=== PATIENT | male | born 1965 | race Asian ===

== ENCOUNTER 2019-11-13 13:28 | Outpatient (REF) | payer SELFPAY ==
[2019-11-13 15:25] LABS: Chol HDL Ratio 3.69 mg/dL (1.0-5.00); Cholesterol 229 mg/dL (0-200); Glucose 95 mg/dL (65-115); HDL Cholesterol 62 mg/dL (60-100); LDL Cholesterol Calculated 144 mg/dL (50-129); LDL HDL Ratio 2.32 RATIO (0.00-3.22); Triglycerides 115 mg/dL (0-150)
[2019-11-13 15:37] LABS: Estmated Average Glucose 105; Hemoglobin A1C 5.3 % (4.0-6.0)
== END 2019-11-13 13:29 | disposition home or self-care (01) ==
LOC: LAB 13:28
PROVIDERS: Family Provider Family Medicine; PCP Family Medicine
DX: Z01.89 Encounter for other specified special examinations (principal)
CPT/HCPCS: 80061; 82947; 83036

== ENCOUNTER 2019-11-26 08:12 | Emergency (ER) | payer OTHER, SELFPAY ==
[2019-11-26 08:26] VITALS: BP 147/96; PULSE 59; RESP 18; TEMP 36.7; O2SAT 99; BMI 27.0
--- NOTE | 2019-11-26 08:30 | XR_ITS ---
WS: [id number] XR tibia fibula RT 2V [id number] REASON FOR EXAM: Trauma FINDINGS: Multiple views of the tibia-fibula films show evidence of fractures or dislocations. There is no soft tissue density is seen no edema or calcification noted. The ankle and the knees show no gross abnormalities. XR/XR tibia fibula RT 2V [id number] IMPRESSION: Negative tibia-fibula study
--- NOTE | 2019-11-26 10:22 | W.ED.EXTPRO ---
HPI - Extremity Problem General: Chief complaint: Extremity Injury, Lower Stated complaint: RIGHT LEG PAIN Time Seen by Provider: 11/26/19 08:31 Source: patient Mode of arrival: ambulatory Limitations: no limitations History of Present Illness: HPI Narrative: Patient hit his leg against a splitting mall on Monday. Patient has a swelling and bruising to the right lower extremity. Patient had extension of the contusion into his ankle on the medial side. Patient came in because of this spreading of the bruise. Review of Systems General: Reports: 10 or more systems reviewed and unremarkable except in HPI and below Skin/Breast: Reports: changes in skin color PFSH ED PFSH: Social History Smoking and tobacco status: never smoked Physical Exam Const: COMMON NORMALS: no apparent distress and oriented x3 GENERAL APPEARANCE: cooperative HENMT: COMMON NORMALS: normocephalic, external ears normal, EAC's normal, TM's normal bilaterally and external nose normal HEAD & SCALP: normal to inspection and normocephalic FACE & SINUS: normal facial exam NOSE: external nose normal GENERAL EAR: hearing not grossly impaired EXTERNAL EAR: Yes external ears normal EXTERNAL AUDITORY CANAL: EAC's normal TYMPANIC MEMBRANE: TM's normal bilaterally MOUTH: oral and palatal mucosa normal THROAT: posterior oropharynx normal Eye: COMMON NORMALS: PERRL and EOMs intact bilaterally PUPIL: Yes PERRL Neck/C-Spine: COMMON NORMALS: full ROM and no lymphadenopathy Lymph: LYMPHATIC: no lymphedema noted Chest: COMMONS NORMALS: inspection of chest normal and palpation of chest normal Resp: COMMON NORMALS: normal respiratory effort and clear to auscultation bilaterally AUSCULTATION: clear to auscultation bilaterally Cardio: COMMON NORMALS: regular rate and regular rhythm RATE: regular rate RHYTHM: regular rhythm GI: COMMON NORMALS: normal to inspection, nondistended, normoactive bowel sounds and non-tender : COMMON NORMALS: Yes no CVA tenderness BLADDER/KIDNEY EXAM: Yes no CVA tenderness Back/Pelvis: COMMON NORMALS: no CVA tenderness and thoracic and lumbar spine normal to inspection Extremity: GENERAL: Yes edema RIGHT LOWER EXTREMITY: Yes lower leg (A palpable hematoma is noted to the medial aspect of the anterior right lower leg. Ecchymosis spreads to the ankle on the same extremity. Swelling is noted at the ankle.) Neuro: COMMON NORMALS: oriented x3, moves all extremities and no focal motor deficits Psych: COMMON NORMALS: mental status grossly normal and cooperative Skin: COMMON NORMALS: no rashes or lesions noted GENERAL SKIN EXAM: no rashes or lesions noted Course Vital Signs: Vital signs: Vital Signs Temperature 98.0 F 11/26/19 08:26 Pulse Rate 59 L 11/26/19 08:26 Respiratory Rate 18 11/26/19 08:26 Blood Pressure 147/96 11/26/19 08:26 Pulse Oximetry 99 11/26/19 08:26 MDM - Extremity (Nontraumatic) MDM Narrative: Medical decision making narrative: Patient comes in today for concerns of swelling and bruising to the right lower extremity after injury. On exam we note a hematoma to the right lower leg that is approximately 4 cm ovoid under the skin. Patient has surrounding area of ecchymosis and spreading of the ecchymosis to the right lower ankle. There is some swelling to the right lower ankle. Differential diagnosis includes fracture, contusion, DVT. No signs of a DVT is noted. X-rays were negative for fracture. Reviewed exam with recommendations for monitoring and treatment of the contusion. Patient reports understanding and agreed to plan. Discharge Plan Discharge Patient Disposition: Home, Self-Care Clinical Impression: Hematoma of lower extremity Qualifiers: Encounter type: initial encounter Laterality: right Qualified Code(s): S80.11XA - Contusion of right lower leg, initial encounter Condition: Stable Discharge Orders: Discharge Order (Routine); Ordered 11/26/19 Ordered By: Jesus Adams Referrals: Rodrigo Perez MD [Primary Care Provider] - Discharge Diet: Usual diet Discharge Activity: Increase activity as tolerated Patient Instructions: Contusion in Adults (ED) Activity Restrictions/Additional Instructions: Activity as tolerated Wear a compression stocking or wrap with elastic bandage distal to proximal Monitor for fever, increased swelling and redness to area. Follow-up as needed Coding Level of Care Code ED Direct Marketing Analyst for Suleman Greer Exam Comprehensive
[2019-11-26 10:37] VITALS: BP 149/90; PULSE 55; RESP 16; O2SAT 98
[2019-11-26 10:41] VITALS: BP 149/90; PULSE 55; RESP 16; O2SAT 98
== END 2019-11-26 10:36 | disposition home or self-care (01) ==
PROVIDERS: Emergency Provider Nurse Practitioner Family; Family Provider Family Medicine; PCP Family Medicine
DX: S80.11XA Contusion of right lower leg, initial encounter (principal); S90.01XA Contusion of right ankle, initial encounter; X58.XXXA Exposure to other specified factors, initial encounter
CPT/HCPCS: 73590; 99281; 99282

== ENCOUNTER 2020-03-10 11:59 | Outpatient (CLI) | payer OTHER, SELFPAY ==
[2020-03-10 12:25] LABS: Basophils # 0.1 10^3/uL (0.0-0.1); Basophils % 0.8 %; Eosinophils # 0.3 10^3/uL (0.0-0.8); Eosinophils % 3.9 %; Hematocrit 36.8 % (42.0-52.0); Hemoglobin 12.1 g/dL (11.7-16.6); Lymphocytes # 2.6 10^3/uL (0.8-4.8); Lymphocytes % 38.8 %; Mean Corpuscular HGB Conc 32.9 g/dL (30.0-36.0); Mean Corpuscular Hemoglobin 33.2 pg (28.0-34.0); Mean Corpuscular Volume 101.1 fL (80-94); Mean Platelet Volume 11.8 fL (7.4-10.4); Monocytes # 0.7 10^3/uL (0.2-0.9); Monocytes % 9.8 %; Neutrophils # 3.1 10^3/uL (1.8-7.7); Neutrophils % 46.4 %; Nucleated Red Blood Cells % 0 %; Platelet Count 212 10^3/cmm (130-400); Red Blood Count 3.64 10^6/uL (4.1-5.3); Red Cell Distribution Width 12.6 % (12.1-15.1); White Blood Count 6.6 10^3/uL (4.0-10.0)
== END 2020-03-10 12:00 | disposition home or self-care (01) ==
LOC: LAB 12:02
PROVIDERS: PCP Family Medicine; Visit Provider Family Medicine
DX: K50.90 Crohn's disease, unspecified, without complications (principal)
CPT/HCPCS: 85025

== ENCOUNTER 2020-04-08 12:00 | Outpatient (CLI) | payer OTHER, SELFPAY | END 2020-04-08 12:01 | disposition home or self-care (01) | LOC: LAB 12:04 | PROVIDERS: PCP Family Medicine; Visit Provider Internal Medicine Gastroenterology | DX: K50.90 Crohn's disease, unspecified, without complications (principal) | CPT/HCPCS: 80299; 82397 ==

== ENCOUNTER → 2020-06-25 12:03 | Day surgery (SDC) | payer OTHER, SELFPAY ==
[2020-06-25 12:08] VITALS: BMI 24.3
[2020-06-25 12:11] VITALS: BP 139/91; PULSE 67; RESP 18; TEMP 37.1; O2SAT 98
[2020-06-25] MEDS: vedolizumab 300 MG in sodium chloride 0.9% 250 ML 500 MG IV (12:44)
== END ==
PROVIDERS: PCP Family Medicine; Visit Provider Internal Medicine Gastroenterology
DX: K50.90 Crohn's disease, unspecified, without complications (principal); R63.4 Abnormal weight loss
CPT/HCPCS: 96365; 96366; J3380; J7050

== ENCOUNTER 2020-08-06 11:50 | Outpatient (RCR) | payer OTHER, SELFPAY ==
[2020-07-09] MEDS: vedolizumab 300 MG in sodium chloride 0.9% 250 ML 500 MG IV (12:50)
[2020-07-09 13:17] VITALS: BMI 24.3
[2020-07-09 13:21] VITALS: BP 126/81; PULSE 58; RESP 18; TEMP 36.2; O2SAT 98
[2020-08-06 12:19] VITALS: BP 135/95; PULSE 65; RESP 18; TEMP 36.8; O2SAT 98
[2020-08-06] MEDS: vedolizumab 300 MG in sodium chloride 0.9% 250 ML 500 MG IV (12:31)
== END 2020-08-08 23:59 | disposition home or self-care (01) ==
LOC: OPS 11:50
PROVIDERS: PCP Family Medicine; Visit Provider Internal Medicine Gastroenterology
DX: K50.90 Crohn's disease, unspecified, without complications (principal); R63.4 Abnormal weight loss
CPT/HCPCS: 96365; J3380; J7050

== ENCOUNTER 2020-09-16 08:31 | Emergency (ER) | payer OTHER, SELFPAY ==
[2020-09-16] VITALS (9 sets, daily range): BP systolic 85–132; BP diastolic 53–87; PULSE 62–77; RESP 15–19; TEMP 36.4; O2SAT 93–97; BMI 26.3
--- NOTE | 2020-09-16 08:33 | XR_ITS ---
WS: [id number] PORTABLE CHEST HISTORY: sob COMPARISON: 07/17/2008 Mild elevation of the RIGHT hemidiaphragm. No pneumonia. Lungs are clear and well expanded. No pleural effusion or pneumothorax. Cardiac size: Normal. Mediastinum/Aorta: Normal mediastinum. No osseous abnormality seen. XR/XR chest 1V portable [id number] IMPRESSION: Unremarkable portable chest.
--- NOTE | 2020-09-16 08:34 | ECG_ITS ---
[facility] Test Date: 2020-09-16 Pat Name: Ad Chapman Department: Room: Gender: Male Surveillance Camera Technician: : 1965 Requested By: Stan Loza Order Number: [id number] Quinones MD: Katya Silvestre M.D. Measurements Intervals Boyce Rate: 63 P: 41 MT: 153 QRS: 22 QRSD: 114 T: 46 QT: 395 QTc: 406 Interpretive Statements SINUS RHYTHM MODERATE INTRAVENTRICULAR CONDUCTION DELAY [110+ ms QRS DURATION] NONSPECIFIC T-WAVE ABNORMALITY No previous ECG available for comparison Electronically Signed On 09-16-2020 19:40:35 FOOD SERVICE ASSOCIATE by Katya Silvestre M.D. [id number]
--- NOTE | 2020-09-16 08:39 | ED_ITS ---
HPI - General Adult General: Chief complaint: General Medical Stated complaint: HYPOTENSION Time Seen by Provider: 09/16/20 08:33 Source: patient Mode of arrival: ambulatory Limitations: no limitations History of Present Illness: HPI narrative: 54-year-old male who is a employee here. He states that he had diarrhea overnight does have a history of Crohn's disease. He states this morning he is feeling dehydrated got lightheaded at work and had presyncope. He states he checked his blood pressure and it was in the 80s. He denies any blood in his stool. He denies any fevers. He denies any pain. Denies any worsening improving factors. Associated symptoms: Deny dyspnea, headache(s) or rash Review of Systems Const: Denies: fever(s), chills, body aches or change in appetite Eyes: Denies: blurry vision or eye discomfort ENMT: Denies: throat pain or dental pain Card: Reports: lightheadedness and pre-syncope Resp: Denies: dyspnea GI: Reports: diarrhea : Denies: dysuria Musc: Denies: neck pain or back pain Skin/Breast: Denies: rash Neuro: Denies: headache(s) Psych: Denies: depression Miguel/Lymph: Denies: easy bruising All/Imm: Denies: urticaria PFSH ED PFSH: Social History Smoking and tobacco status: never smoked Physical Exam Const: COMMON NORMALS: no acute distress, patient oriented x3 and healthy appearing HENMT: COMMON NORMALS: normocephalic and atraumatic HEAD & SCALP: normocephalic and atraumatic Eye: COMMON NORMALS: Equal, round and reactive pupils present and EOMs intact bilaterally PUPIL: Yes Equal, round and reactive pupils present Neck/C-Spine: COMMON NORMALS: full ROM and supple Chest: COMMONS NORMALS: normal inspection of the chest and normal palpation of entire chest wall Resp: COMMON NORMALS: normal respiratory effort, No retractions, No use of accessory muscles and clear to auscultation bilaterally AUSCULTATION: clear to auscultation bilaterally Cardio: COMMON NORMALS: regular rate, regular rhythm and No murmurs present (Cardio) RATE: regular rate RHYTHM: regular rhythm GI: COMMON NORMALS: Normal to inspection, nondistended, normoactive bowel sounds present, Soft to palpation, non-tender and no masses PALPATION: Yes Soft to palpation Extremity: COMMON NORMALS: normal to inspection and full ROM Neuro: COMMON NORMALS: patient oriented x3, moves all extremities and no focal motor deficits Psych: COMMON NORMALS: mental status grossly normal, Normal thought process present and cooperative THOUGHT PROCESS: Normal thought process present Skin: COMMON NORMALS: no rashes or lesions noted and no wounds GENERAL SKIN EXAM: no rashes or lesions noted Course Vital Signs: Vital signs: Vital Signs Temperature 97.5 F L 09/16/20 08:32 Pulse Rate 62 09/16/20 09:55 Respiratory Rate 16 09/16/20 09:15 Blood Pressure 119/77 09/16/20 09:55 Pulse Oximetry 94 09/16/20 09:15 MDM - General Adult MDM Narrative: Medical decision making narrative: Ad presents here with near syncope and hypotension likely from his diarrhea and dehydration. His blood pressure is much improved and his orthostatics are normal. Blood work here is normal as well. He has Crohn's and has no signs of infectious cause of his diarrhea. He is stable for discharge is to rest and follow-up with his PCP and return if worsening. He understands and agrees to plan. Lab Data: Labs: Lab Results 09/16/20 09/16/20 09/16/20 Range/Units 08:35 08:39 08:39 WBC 6.8 (4.0-10.0) 10^3/ uL RBC 3.42 L (4.1-5.3) 10^6/u L Hgb 11.8 (11.7-16.6) g/dL Hct 34.8 L (42.0-52.0) % MCV 101.8 H (80-94) fL MCH 34.5 H (28.0-34.0) pg MCHC 33.9 (30.0-36.0) g/dL RDW 11.9 L (12.1-15.1) % Plt Count 226 (130-400) 10^3/c mm MPV 11.9 H (7.4-10.4) fL Neut % (Auto) 32.7 % Lymph % (Auto) 52.5 % Perkins % (Auto) 9.8 % Eos % (Auto) 3.7 % Baso % (Auto) 0.9 % Neut # (Auto) 2.21 (1.8-7.7) 10^3/u L Lymph # (Auto) 3.6 (0.8-4.8) 10^3/u L Perkins # (Auto) 0.7 (0.2-0.9) 10^3/u L Eos # (Auto) 0.3 (0.0-0.8) 10^3/u L Baso # (Auto) 0.1 (0.0-0.1) 10^3/u L Nucleated RBC % (a uto) 0 % Nucleated RBCs # 0.0 /100WBC Sodium 137 (136-145) mmol/L Potassium 4.1 (3.5-5.1) mmol/L Chloride 102 (98-107) mmol/L Carbon Dioxide 24 (22-29) mmol/L Anion Gap 15.1 (5-19) BUN 11 (6-20) mg/dL Creatinine 1.1 (0.7-1.2) mg/dL GFR Calculation 69.2 L (90-130) mL/min Glucose 142 H (65-115) mg/dL POC Glucose 138 (70-110) mg/dL Calculated Osmolal ity 286 (285-295) mOsm/k g Calcium 8.9 (8.5-10.5) mg/dL Total Bilirubin 0.5 (0.15-1.2) mg/dL AST 19 (0-40) U/L ALT 21 (0-41) U/L Alkaline Phosphata se 54 (40-130) IU/L Total Protein 6.6 (6.6-8.7) g/dL Albumin 3.9 (3.5-5.2) g/dL Globulin 2.7 (1.3-4.6) g/dL Imaging Data^: CXR: Attestation: I personally reviewed and interpreted this imaging study as follows: Radiologist's impression: [address] [address] XRay Report Signed Patient: Ad Chapman Unit #: [id number] : 1965 Age/Sex: 54 / M ADM Date: 09/16/20 Loc: ER Room/Bed: Attending Dr: Ordering Provider/Ordering MD: Stan Loza MD Date of Service: 09/16/20 Procedure(s): XR chest 1V portable [id number] Accession Number(s): [id number] Report Number: [id number] WS: [id number] PORTABLE CHEST HISTORY: sob COMPARISON: 07/17/2008 Mild elevation of the RIGHT hemidiaphragm. No pneumonia. Lungs are clear and well expanded. No pleural effusion or pneumothorax. Cardiac size: Normal. Mediastinum/Aorta: Normal mediastinum. No osseous abnormality seen. XR/XR chest 1V portable [id number] IMPRESSION: Unremarkable portable chest. EKG Data^: EKG 1: Attestation: I personally reviewed and interpreted this EKG as follows: EKG interpretation date: 09/16/20 EKG interpretation time: 08:47 Interpretation: nsr hr [address] or t wave abnormalities qrs 114 qtc 402 Computer generated interpretation: Chest X-Ray 09/16/20 08:33 IMPRESSION: Unremarkable portable chest. Discharge Plan Discharge Patient Disposition: Home Clinical Impression: Near syncope Diarrhea Qualifiers: Diarrhea type: unspecified type Qualified Code(s): R19.7 - Diarrhea, unspecified Condition: Stable Prescriptions: No Action carvedilol [Coreg] 25 mg Tablet 25 mg PO BID@18 RF: 0 lisinopril 20 mg Tablet 20 mg PO BID@18 RF: 0 amlodipine [Norvasc] 5 mg Tablet 5 mg PO DAILY@18 RF: 0 alprazolam [Xanax] 0.25 mg Tablet 0.25 mg PO BID PRN (Reason: Anxiety) RF: 0 hyoscyamine sulfate [Levsin] 0.125 mg Tablet 0.125 mg PO QID PRN (Reason: IBS) RF: 0 Imodium Multi-Symptom Relief 2-125 mg Tablet 1 tab PO Q3H PRN (Reason: DIARRHEA) RF: 0 hydrocodone-acetaminophen [Vicodin HP] 10-300 mg Tablet 1 tab PO Q8H PRN (Reason: Pain) RF: 0 Probiotic 100 billion cell Capsule 1 cap PO DAILY@06 RF: 0 Zofran 4 mg Tablet 4 mg PO Q6H PRN (Reason: Nausea) RF: 0 Bentyl 20 mg Tablet 20 mg PO QID PRN (Reason: IBS) RF: 0 zolpidem 6.25 mg Tablet,Ext Release Multiphase 6.25 mg PO BEDTIME PRN (Reason: Insomnia) RF: 0 Entyvio 300 mg Recon Soln 300 mg IV . DIRECTED RF: 0 Discharge Orders: Discharge ED (Routine); Ordered 09/16/20 Ordered By: Stan Loza Referrals: Rodrigo Perez MD [Primary Care Provider] - 1-3 days Discharge Diet: Advance as tolerated Discharge Activity: Resume usual activity Patient Instructions: Acute Diarrhea (ED), Near Syncope (ED) Stand Alone Forms: Work/School Release Coding Level of Care Code ED Spark Plug Tester for Chg Fwd Exam Comprehensive
[2020-09-16 08:45] LABS: Glucose Point of Care 138 mg/dL (70-110)
[2020-09-16] MEDS: sodium chloride 0.9% 1,000 ML 999 ML IV ×2 (08:45→09:50)
[2020-09-16 08:58] LABS: Basophils # 0.1 10^3/uL (0.0-0.1); Basophils % 0.9 %; Eosinophils # 0.3 10^3/uL (0.0-0.8); Eosinophils % 3.7 %; Hematocrit 34.8 % (42.0-52.0); Hemoglobin 11.8 g/dL (11.7-16.6); Lymphocytes # 3.6 10^3/uL (0.8-4.8); Lymphocytes % 52.5 %; Mean Corpuscular HGB Conc 33.9 g/dL (30.0-36.0); Mean Corpuscular Hemoglobin 34.5 pg (28.0-34.0); Mean Corpuscular Volume 101.8 fL (80-94); Mean Platelet Volume 11.9 fL (7.4-10.4); Monocytes # 0.7 10^3/uL (0.2-0.9); Monocytes % 9.8 %; Neutrophils # 2.21 10^3/uL (1.8-7.7); Neutrophils % 32.7 %; Nucleated Red Blood Cells % 0 %; Platelet Count 226 10^3/cmm (130-400); Red Blood Count 3.42 10^6/uL (4.1-5.3); Red Cell Distribution Width 11.9 % (12.1-15.1); White Blood Count 6.8 10^3/uL (4.0-10.0)
[2020-09-16 09:25] LABS: Alanine Aminotransferase 21 U/L (0-41); Albumin Level 3.9 g/dL (3.5-5.2); Alkaline Phosphatase 54 IU/L (40-130); Anion Gap 15.1 (5-19); Aspartate Amino Transferase 19 U/L (0-40); Blood Urea Nitrogen 11 mg/dL (6-20); Calcium 8.9 mg/dL (8.5-10.5); Carbon Dioxide 24 mmol/L (22-29); Chloride 102 mmol/L (98-107); Globulin 2.7 g/dL (1.3-4.6); Glomerular Filtration Rate 69.2 mL/min (90-130); Glucose 142 mg/dL (65-115); Osmolality Calculated 286 mOsm/kg (285-295); Potassium 4.1 mmol/L (3.5-5.1); Sodium 137 mmol/L (136-145); Total Bilirubin 0.5 mg/dL (0.15-1.2); Total Protein 6.6 g/dL (6.6-8.7)
== END 2020-09-16 10:50 | disposition home or self-care (01) ==
PROVIDERS: Emergency Provider Emergency Medicine; PCP Family Medicine
DX: R55 Syncope and collapse (principal); R19.7 Diarrhea, unspecified
CPT/HCPCS: 12345; 36416; 71045; 80053; 82962; 85025; 93005; 96360; 96361; 99282; 99283; J7030

== ENCOUNTER → 2020-09-17 13:23 | Day surgery (SDC) | payer OTHER, SELFPAY ==
[2020-09-17] MEDS: vedolizumab 300 MG in sodium chloride 0.9% 250 ML 500 MG IV (14:00)
[2020-09-17 14:03] VITALS: BP 137/88; PULSE 66; RESP 18; TEMP 36.3; O2SAT 97; BMI 26.3
== END ==
PROVIDERS: PCP Family Medicine; Visit Provider Internal Medicine Gastroenterology
DX: K50.90 Crohn's disease, unspecified, without complications (principal)
CPT/HCPCS: 96365; J3380; J7050

== ENCOUNTER 2020-10-28 07:02 | Outpatient (CLI) | payer OTHER, SELFPAY ==
--- NOTE | 2020-10-28 07:06 | USCV_ITS ---
Ari Ad Age: 55 Gender: M : 1965 Exam Date: 10/28/2020 07:15 Ordering Phys: Rodrigo Perez MD Technologist: Cecille Caldera Exam Location: [facility] [place] Indication: CHEST PAIN BP: 132 / 94 HR: 64 Rhythm: Sinus Technical Quality: Adequate MEASUREMENTS (Male / Female) Normal Values 2D ECHO LV Diastolic Diameter PLAX 4.9 cm 4.2 - 5.9 / 3.9 - 5.3 cm LV Systolic Diameter PLAX 2.6 cm LV Chamber Size 4.0 cm IVS Diastolic Thickness 0.9 cm 0.6 - 1.0 / 0.6 - 0.9 cm IVS Systolic Thickness 1.8 cm LVPW Diastolic Thickness 1.8 cm 0.6 - 1.0 / 0.6 - 0.9 cm LVPW Systolic Thickness 1.9 cm RV Chamber Size 2.8 cm LVOT Diameter 2.1 cm LV Ejection Fraction 2D Teich 77.1 % LV Ejection Fraction MOD 2C 40.1 % LV Ejection Fraction 2C AL 41.1 % LA Diameter 3.2 cm LA Width 4.1 cm LA Height 4.9 cm RA Width 2.8 cm RA Height 4.1 cm Aorta at Sinotubular Diameter 3.2 cm M-MODE LV Diastolic Diameter MM 5.1 cm 4.2 - 5.9 / 3.9 - 5.3 cm LV Systolic Diameter MM 3.2 cm LV Ejection Fraction MM Teich 68.5 % IVS Diastolic Thickness MM 0.6 cm 0.6 - 1.0 / 0.6 - 0.9 cm IVS Systolic Thickness MM 1.6 cm LVPW Diastolic Thickness MM 1.1 cm 0.6 - 1.0 / 0.6 - 0.9 cm LVPW Systolic Thickness MM 1.4 cm Aortic Annulus Diameter 3.4 cm LA Ao Ratio MM 1.1 MV E Point Septal Separation 0.4 cm DOPPLER AV Peak Velocity 124.3 cm/s LVOT Peak Velocity 95.0 cm/s AV Area Cont Eq vti 3.5 cm squared AV Area Cont Eq pk 2.6 cm squared MV Area PHT 3.3 cm squared Mitral E to A Ratio 1.0 MV E' Velocity 41.0 cm/s Mitral E to MV E' Ratio 8.4 Mitral E to LV E' Lateral Ratio 8.6 Mitral E to LV E' Septal Ratio 8.4 TR Peak Velocity 191.7 cm/s TR Peak Gradient 14.7 mmHg TV Peak E Velocity 80.0 cm/s Right Atrial Pressure 3.0 mmHg Pulmonary Artery Systolic Pressu 17.7 mmHg PV Peak Velocity 81.0 cm/s RV Acceleration Time 0.2 s RV Ejection Time 0.4 s RV AcT/ET 0.5 FINDINGS Left Ventricle Normal left ventricular cavity size. Normal left ventricular systolic function. No regional wall motion abnormalities. Left ventricular ejection fraction is estimated at 65 %. Grade I/IV diastolic dysfunction (abnormal relaxation filling pattern), normal to mildly elevated filling pressures. Right Ventricle The right ventricle is normal in size and function. Right Atrium The right atrium is normal in size. Left Atrium The left atrium is normal in size. Mitral Valve Mildly thickened mitral valve. No mitral valve stenosis. Mild mitral valve regurgitation. Aortic Valve Structurally normal aortic valve without significant sclerosis or stenosis. There is no aortic regurgitation. Tricuspid Valve Structurally normal tricuspid valve without significant stenosis or regurgitation. Pulmonary artery systolic pressure is normal. Pulmonic Valve Structurally normal pulmonic valve without significant stenosis. There is no pulmonic regurgitation. Pericardium Normal pericardium without effusion. Aorta Normal ascending aorta dimension. CONCLUSIONS 1-Normal left ventricular cavity size. Normal left ventricular systolic function. No regional wall motion abnormalities. Left ventricular ejection fraction is estimated at 65 %. Grade I/IV diastolic dysfunction (abnormal relaxation filling pattern), normal to mildly elevated filling pressures. 2-There is no pericardial effusion. 3-No significant valve abnormalities. 4-Pulmonary artery systolic pressure is within normal limits. 6-Right atrial pressure is around 5 mm of mercury. 7-There are no prior echocardiogram studies to compare. Kristyn Wells MD (Electronically Signed) Final Date: 29 October 2020 17:20 S
== END 2020-10-28 07:03 | disposition home or self-care (01) ==
LOC: RAD 07:03
PROVIDERS: PCP Family Medicine; Visit Provider Family Medicine
DX: R60.0 Localized edema (principal); R07.9 Chest pain, unspecified
CPT/HCPCS: 93306

== ENCOUNTER 2020-11-23 12:47 | Outpatient (RCR) | payer OTHER, SELFPAY ==
[2020-11-23 13:09] VITALS: BMI 27.0
[2020-11-23 13:14] VITALS: BP 125/86; PULSE 63; RESP 16; TEMP 36.2; O2SAT 97
[2020-11-23] MEDS: vedolizumab 300 MG in sodium chloride 0.9% 250 ML 500 MG IV (13:27)
[2020-11-23 13:33] LABS: Alanine Aminotransferase 18 U/L (0-41); Albumin Level 4.5 g/dL (3.5-5.2); Alkaline Phosphatase 67 IU/L (40-130); Anion Gap 14.7 (5-19); Aspartate Amino Transferase 18 U/L (0-40); Blood Urea Nitrogen 14 mg/dL (6-20); Calcium 9.6 mg/dL (8.5-10.5); Carbon Dioxide 24 mmol/L (22-29); Chloride 104 mmol/L (98-107); Globulin 3.2 g/dL (1.3-4.6); Glomerular Filtration Rate 62.4 mL/min (90-130); Glucose 95 mg/dL (65-115); Osmolality Calculated 286 mOsm/kg (285-295); Potassium 4.7 mmol/L (3.5-5.1); Sodium 138 mmol/L (136-145); Total Bilirubin 0.7 mg/dL (0.15-1.2); Total Protein 7.7 g/dL (6.6-8.7)
== END 2020-12-06 23:59 | disposition home or self-care (01) ==
LOC: OPS 12:47
PROVIDERS: PCP Family Medicine; Visit Provider Internal Medicine Gastroenterology
DX: K50.90 Crohn's disease, unspecified, without complications (principal)
CPT/HCPCS: 36415; 80053; 96365; J3380; J7050

== ENCOUNTER 2020-12-09 15:42 | Outpatient (CLI) | payer OTHER, SELFPAY ==
--- NOTE | 2020-12-09 15:50 | USCV_ITS ---
Chapman Ad Age: 55 Gender: M : 1965 Exam Date: 12/09/2020 16:01 Ordering Phys: Rodrigo Perez MD Technologist: Julainn Estrada Exam Location: [facility] [place] Indication: Edema HISTORY: Lower extremity edema. PROCEDURES: Venous duplex imaging was performed in bilateral lower extremities. The following venous structures were evaluated: common femoral vein, profunda vein, proximal portion of the greater saphenous vein, superficial femoral vein, and the popliteal vein. In addition, the posterior tibial and peroneal trunk were evaluated. FINDINGS: Normal 2-D Doppler and augmentation and compressibility throughout the lower extremity venous structures. Additional imaging through the proximal calf veins also reveals no thrombus. Limited evaluation of the greater saphenous vein is patent with no thrombus. CONCLUSIONS No DVT bilateral lower extremities. Dr. Nadia Casillas DO (Electronically Signed) Final Date: 10 December 2020 08:27 S
== END 2020-12-09 15:43 | disposition home or self-care (01) ==
LOC: US 15:45
PROVIDERS: PCP Family Medicine; Visit Provider Family Medicine
DX: R60.9 Edema, unspecified (principal)
CPT/HCPCS: 93970

== ENCOUNTER → 2021-01-18 15:40 | Day surgery (SDC) | payer OTHER, SELFPAY ==
[2021-01-18 16:10] VITALS: BP 118/83; PULSE 63; RESP 18; TEMP 36.3; O2SAT 96; BMI 26.1
[2021-01-18] MEDS: vedolizumab 300 MG in sodium chloride 0.9% 250 ML 500 MG IV (16:13)
== END ==
PROVIDERS: PCP Family Medicine; Visit Provider Internal Medicine Gastroenterology
DX: K50.90 Crohn's disease, unspecified, without complications (principal)
CPT/HCPCS: 96365; J3380; J7050

== ENCOUNTER → 2021-03-17 12:38 | Day surgery (SDC) | payer OTHER, SELFPAY ==
[2021-03-17 12:51] VITALS: BP 118/74; PULSE 73; RESP 18; TEMP 36.9; O2SAT 96
[2021-03-17 12:53] VITALS: BMI 24.5
[2021-03-17] MEDS: vedolizumab 300 MG in sodium chloride 0.9% 250 ML 500 MG IV (13:20)
== END ==
PROVIDERS: PCP Family Medicine; Visit Provider Internal Medicine Gastroenterology
DX: Z20.822 Contact with and (suspected) exposure to COVID-19 (principal)
CPT/HCPCS: 87426; 96365; J3380; J7050

== ENCOUNTER → 2021-05-10 14:12 | Day surgery (SDC) | payer OTHER, SELFPAY ==
[2021-05-10] MEDS: vedolizumab 300 MG in sodium chloride 0.9% 250 ML 500 MG IV (15:15)
[2021-05-10 15:24] VITALS: BP 141/93; PULSE 62; RESP 18; TEMP 36.6; O2SAT 98; BMI 25.0
[2021-05-10 15:24] LABS: Alanine Aminotransferase 16 U/L (0-41); Alkaline Phosphatase 63 IU/L (40-130); Anion Gap 14.1 (5-19); Aspartate Amino Transferase 16 U/L (0-40); Blood Urea Nitrogen 10 mg/dL (6-20); Calcium 8.9 mg/dL (8.5-10.5); Carbon Dioxide 27 mmol/L (22-29); Chloride 104 mmol/L (98-107); Glomerular Filtration Rate 99.6 mL/min (90-130); Glucose 103 mg/dL (65-115); Osmolality Calculated 291 mOsm/kg (285-295); Potassium 4.1 mmol/L (3.5-5.1); Sodium 141 mmol/L (136-145); Total Bilirubin 0.6 mg/dL (0.15-1.2)
== END ==
PROVIDERS: PCP Family Medicine; Visit Provider Internal Medicine Gastroenterology
DX: K50.90 Crohn's disease, unspecified, without complications (principal)
CPT/HCPCS: 36415; 80053; 96365; J3380; J7050

== ENCOUNTER → 2021-07-05 13:13 | Day surgery (SDC) | payer OTHER, SELFPAY ==
[2021-07-05 13:40] VITALS: BP 123/78; PULSE 65; RESP 16; TEMP 36; O2SAT 96; BMI 25.5
[2021-07-05] MEDS: vedolizumab 300 MG in sodium chloride 0.9% 250 ML 500 MG IV (13:43)
[2021-07-05 13:48] LABS: Basophils # 0.1 10^3/uL (0.0-0.1); Basophils % 0.8 %; Eosinophils # 0.9 10^3/uL (0.0-0.8); Eosinophils % 11.3 %; Hematocrit 38.4 % (42.0-52.0); Lymphocytes # 3.3 10^3/uL (0.8-4.8); Lymphocytes % 42.1 %; Mean Corpuscular HGB Conc 33.9 g/dL (30.0-36.0); Mean Corpuscular Volume 97.5 fl (80-94); Mean Platelet Volume 11.1 fL (7.4-10.4); Monocytes # 0.7 10^3/uL (0.2-0.9); Monocytes % 8.7 %; Neutrophils # 2.91 10^3/uL (1.8-7.7); Neutrophils % 36.7 %; Nucleated Red Blood Cells % 0 %; Platelet Count 183 10^3/cmm (130-400); Red Blood Count 3.94 10^6/uL (4.1-5.3); Red Cell Distribution Width 12.6 % (12.1-15.1); White Blood Count 7.9 10^3/uL (4.0-10.0)
[2021-07-05 14:21] LABS: Alanine Aminotransferase 18 U/L (0-41); Albumin Level 4.2 g/dL (3.5-5.2); Alkaline Phosphatase 60 IU/L (40-130); Anion Gap 15.7 (5-19); Aspartate Amino Transferase 17 U/L (0-40); Blood Urea Nitrogen 16 mg/dL (6-20); Calcium 8.9 mg/dL (8.5-10.5); Carbon Dioxide 25 mmol/L (22-29); Chloride 99 mmol/L (98-107); Globulin 3.3 g/dL (1.3-4.6); Glomerular Filtration Rate 99.6 mL/min (90-130); Glucose 119 mg/dL (65-115); Osmolality Calculated 284 mOsm/kg (285-295); Potassium 3.7 mmol/L (3.5-5.1); Sodium 136 mmol/L (136-145); Total Bilirubin 0.9 mg/dL (0.15-1.2); Total Protein 7.5 g/dL (6.6-8.7)
== END ==
PROVIDERS: PCP Family Medicine; Visit Provider Internal Medicine Gastroenterology
DX: K50.90 Crohn's disease, unspecified, without complications (principal); R63.4 Abnormal weight loss
CPT/HCPCS: 36415; 80053; 85025; 96365; J3380; J7050

== ENCOUNTER → 2021-08-31 15:42 | Day surgery (SDC) | payer OTHER, SELFPAY ==
[2021-08-31] MEDS: vedolizumab 300 MG in sodium chloride 0.9% 250 ML 400 MG IV (16:04)
[2021-08-31 16:20] VITALS: BMI 25.5
[2021-08-31 16:22] VITALS: BP 138/86; PULSE 67; RESP 18; TEMP 36.1; O2SAT 96
--- NOTE | 2021-08-31 17:07 | PC.NURSE ---
patient did not want benadryl today.
== END ==
PROVIDERS: PCP Family Medicine; Visit Provider Internal Medicine Gastroenterology
DX: K50.90 Crohn's disease, unspecified, without complications (principal); R63.4 Abnormal weight loss
CPT/HCPCS: 96365; J3380; J7050

== ENCOUNTER → 2021-10-26 13:03 | Day surgery (SDC) | payer OTHER, SELFPAY ==
[2021-10-26 13:20] VITALS: BP 118/81; PULSE 65; RESP 16; TEMP 36.5; O2SAT 95
[2021-10-26] MEDS: vedolizumab 300 MG in sodium chloride 0.9% 250 ML 500 MG IV (13:57)
[2021-10-26 14:22] LABS: Basophils # 0.1 10^3/uL (0.0-0.1); Eosinophils # 0.3 10^3/uL (0.0-0.8); Eosinophils % 4.4 %; Hematocrit 37.5 % (42.0-52.0); Hemoglobin 12.5 g/dL (11.7-16.6); Lymphocytes # 2.8 10^3/uL (0.8-4.8); Lymphocytes % 38.1 %; Mean Corpuscular HGB Conc 33.3 g/dL (30.0-36.0); Mean Corpuscular Hemoglobin 32.7 pg (28.0-34.0); Mean Corpuscular Volume 98.2 fl (80-94); Mean Platelet Volume 11.3 fL (7.4-10.4); Monocytes # 0.6 10^3/uL (0.2-0.9); Monocytes % 8.7 %; Neutrophils # 3.42 10^3/uL (1.8-7.7); Neutrophils % 47.2 %; Nucleated Red Blood Cells % 0 %; Platelet Count 217 10^3/cmm (130-400); Red Blood Count 3.82 10^6/uL (4.1-5.3); Red Cell Distribution Width 12.7 % (12.1-15.1); White Blood Count 7.2 10^3/uL (4.0-10.0)
[2021-10-26 15:07] LABS: Alanine Aminotransferase 35 U/L (0-41); Albumin Level 4.6 g/dL (3.5-5.2); Alkaline Phosphatase 59 IU/L (40-130); Anion Gap 18.2 (5-19); Aspartate Amino Transferase 26 U/L (0-40); Blood Urea Nitrogen 17 mg/dL (6-20); Calcium 8.8 mg/dL (8.5-10.5); Carbon Dioxide 23 mmol/L (22-29); Chloride 102 mmol/L (98-107); Globulin 2.3 g/dL (1.3-4.6); Glomerular Filtration Rate 99.3 mL/min (90-130); Glucose 100 mg/dL (65-115); Osmolality Calculated 290 mOsm/kg (285-295); Potassium 4.2 mmol/L (3.5-5.1); Sodium 139 mmol/L (136-145); Total Bilirubin 0.8 mg/dL (0.15-1.2); Total Protein 6.9 g/dL (6.6-8.7)
== END ==
PROVIDERS: PCP Family Medicine; Visit Provider Internal Medicine Gastroenterology
DX: K50.90 Crohn's disease, unspecified, without complications (principal); R63.4 Abnormal weight loss
CPT/HCPCS: 36415; 80053; 85025; 96365; J3380; J7050

== ENCOUNTER → 2021-12-21 13:22 | Day surgery (SDC) | payer OTHER, SELFPAY ==
[2021-12-21] MEDS: vedolizumab 300 MG in sodium chloride 0.9% 250 ML 500 MG IV (14:57)
[2021-12-21 15:00] VITALS: BP 118/68; PULSE 64; RESP 18; TEMP 36.6; O2SAT 96
== END ==
PROVIDERS: PCP Family Medicine; Visit Provider Internal Medicine Gastroenterology
DX: K50.90 Crohn's disease, unspecified, without complications (principal); R63.4 Abnormal weight loss
CPT/HCPCS: 96365; J3380; J7050

== ENCOUNTER → 2022-02-17 13:55 | Day surgery (SDC) | payer OTHER, SELFPAY ==
[2022-02-17] MEDS: vedolizumab 300 MG in sodium chloride 0.9% 250 ML 500 MG IV (15:30)
[2022-02-17 15:36] LABS: Basophils # 0.1 10^3/uL (0.0-0.1); Basophils % 0.8 %; Eosinophils # 0.3 10^3/uL (0.0-0.8); Hematocrit 40.2 % (42.0-52.0); Hemoglobin 13.3 g/dL (11.7-16.6); Lymphocytes # 2.5 10^3/uL (0.8-4.8); Lymphocytes % 32.5 %; Mean Corpuscular HGB Conc 33.1 g/dL (30.0-36.0); Mean Corpuscular Hemoglobin 32.7 pg (28.0-34.0); Mean Corpuscular Volume 98.8 fl (80-94); Monocytes # 0.7 10^3/uL (0.2-0.9); Monocytes % 8.9 %; Neutrophils # 4.16 10^3/uL (1.8-7.7); Neutrophils % 53.4 %; Nucleated Red Blood Cells % 0 %; Platelet Count 212 10^3/cmm (130-400); Red Blood Count 4.07 10^6/uL (4.1-5.3); Red Cell Distribution Width 12.7 % (12.1-15.1); White Blood Count 7.8 10^3/uL (4.0-10.0)
[2022-02-17 15:38] VITALS: BP 124/87; PULSE 59; RESP 18; TEMP 37; O2SAT 97
[2022-02-18 07:51] LABS: Alanine Aminotransferase 26 U/L (0-41); Albumin Level 4.4 g/dL (3.5-5.2); Alkaline Phosphatase 59 IU/L (40-130); Aspartate Amino Transferase 19 U/L (0-40); Blood Urea Nitrogen 16 mg/dL (6-20); Calcium 9.4 mg/dL (8.5-10.5); Carbon Dioxide 26 mmol/L (22-29); Chloride 103 mmol/L (98-107); Globulin 2.7 g/dL (1.3-4.6); Glomerular Filtration Rate 86.7 mL/min (90-130); Glucose 100 mg/dL (65-115); Osmolality Calculated 289 mOsm/kg (285-295); Sodium 139 mmol/L (136-145); Total Bilirubin 0.6 mg/dL (0.15-1.2); Total Protein 7.1 g/dL (6.6-8.7)
== END ==
PROVIDERS: PCP Family Medicine; Visit Provider Internal Medicine Gastroenterology
DX: K50.90 Crohn's disease, unspecified, without complications (principal)
CPT/HCPCS: 36415; 80053; 85025; 96365; J3380; J7050

== ENCOUNTER → 2022-04-12 11:46 | Day surgery (SDC) | payer OTHER, SELFPAY ==
[2022-04-12 14:27] VITALS: BP 138/94; PULSE 62; RESP 18; TEMP 36.3; O2SAT 95
[2022-04-12 14:32] LABS: Basophils # 0.1 10^3/uL (0.0-0.1); Basophils % 0.7 %; Eosinophils # 0.2 10^3/uL (0.0-0.8); Eosinophils % 2.5 %; Hematocrit 37.6 % (42.0-52.0); Hemoglobin 12.8 g/dL (11.7-16.6); Lymphocytes # 2.8 10^3/uL (0.8-4.8); Lymphocytes % 36.4 %; Mean Corpuscular Hemoglobin 32.8 pg (28.0-34.0); Mean Corpuscular Volume 96.4 fl (80-94); Mean Platelet Volume 11.7 fL (7.4-10.4); Monocytes # 0.8 10^3/uL (0.2-0.9); Monocytes % 10.7 %; Neutrophils # 3.75 10^3/uL (1.8-7.7); Neutrophils % 49.3 %; Nucleated Red Blood Cells % 0 %; Platelet Count 193 10^3/cmm (130-400); Red Cell Distribution Width 12.8 % (12.1-15.1); White Blood Count 7.6 10^3/uL (4.0-10.0)
[2022-04-12 14:52] LABS: Alanine Aminotransferase 33 U/L (0-41); Albumin Level 4.7 g/dL (3.5-5.2); Alkaline Phosphatase 60 IU/L (40-130); Aspartate Amino Transferase 27 U/L (0-40); Blood Urea Nitrogen 16 mg/dL (6-20); Calcium 9.5 mg/dL (8.5-10.5); Carbon Dioxide 27 mmol/L (22-29); Chloride 103 mmol/L (98-107); Globulin 2.7 g/dL (1.3-4.6); Glomerular Filtration Rate 86.7 mL/min (90-130); Glucose 97 mg/dL (65-115); Osmolality Calculated 291 mOsm/kg (285-295); Sodium 140 mmol/L (136-145); Total Bilirubin 0.9 mg/dL (0.15-1.2); Total Protein 7.4 g/dL (6.6-8.7)
[2022-04-12 15:01] LABS: Anion Gap 14.5 (5-19); Potassium 4.5 mmol/L (3.5-5.1)
== END ==
PROVIDERS: PCP Family Medicine; Visit Provider Internal Medicine
DX: K50.90 Crohn's disease, unspecified, without complications (principal)
CPT/HCPCS: 36415; 80053; 85025; 96365; J7050

== ENCOUNTER → 2022-06-07 12:42 | Day surgery (SDC) | payer OTHER, SELFPAY ==
[2022-06-07 14:12] VITALS: BP 134/79; PULSE 56; RESP 18; TEMP 36.6; O2SAT 96
== END ==
PROVIDERS: PCP Family Medicine; Visit Provider Internal Medicine
DX: K50.90 Crohn's disease, unspecified, without complications (principal)
CPT/HCPCS: 96365; J7050

== ENCOUNTER → 2022-08-16 09:49 | Day surgery (SDC) | payer OTHER, SELFPAY ==
[2022-08-16 10:23] LABS: Basophils # 0.1 10^3/uL (0.0-0.1); Basophils % 0.8 %; Eosinophils # 0.5 10^3/uL (0.0-0.8); Hematocrit 38.7 % (42.0-52.0); Lymphocytes # 3.7 10^3/uL (0.8-4.8); Lymphocytes % 48.4 %; Mean Corpuscular HGB Conc 33.6 g/dL (30.0-36.0); Mean Corpuscular Hemoglobin 32.6 pg (28.0-34.0); Mean Platelet Volume 11.6 fL (7.4-10.4); Monocytes # 0.8 10^3/uL (0.2-0.9); Neutrophils # 2.53 10^3/uL (1.8-7.7); Neutrophils % 33.3 %; Nucleated Red Blood Cells % 0 %; Platelet Count 220 10^3/cmm (130-400); Red Blood Count 3.99 10^6/uL (4.1-5.3); Red Cell Distribution Width 12.4 % (12.1-15.1); White Blood Count 7.6 10^3/uL (4.0-10.0)
[2022-08-16 10:34] VITALS: BP 130/84; PULSE 51; RESP 18; TEMP 36.3; O2SAT 94
[2022-08-16 10:59] LABS: Alanine Aminotransferase 51 U/L (0-41); Albumin Level 4.2 g/dL (3.5-5.2); Alkaline Phosphatase 70 U/L (40-130); Anion Gap 16.3 (5-19); Aspartate Amino Transferase 41 U/L (0-40); Blood Urea Nitrogen 14 mg/dL (6-20); Calcium 9.1 mg/dL (8.5-10.5); Carbon Dioxide 23 mmol/L (22-29); Chloride 102 mmol/L (98-107); Globulin 2.9 g/dL (1.3-4.6); Glomerular Filtration Rate 86.7 mL/min (90-130); Glucose 104 mg/dL (65-115); Osmolality Calculated 285 mOsm/kg (285-295); Potassium 4.3 mmol/L (3.5-5.1); Sodium 137 mmol/L (136-145); Total Bilirubin 0.5 mg/dL (0.15-1.2); Total Protein 7.1 g/dL (6.6-8.7)
== END ==
PROVIDERS: PCP Family Medicine; Visit Provider Clinical Nurse Specialist Adult Health
DX: K50.90 Crohn's disease, unspecified, without complications (principal)
CPT/HCPCS: 80053; 85025; 96365; J7050

== ENCOUNTER → 2022-09-20 13:56 | Outpatient (BNVA) | payer OTHER, SELFPAY | PROVIDERS: PCP Family Medicine; Visit Provider Family Medicine | DX: R79.89 Other specified abnormal findings of blood chemistry (principal); K50.90 Crohn's disease, unspecified, without complications; I10 Essential (primary) hypertension | CPT/HCPCS: 80053; 80074 ==

== ENCOUNTER 2022-10-05 10:01 | Outpatient (CLI) | payer OTHER, SELFPAY ==
--- NOTE | 2022-10-05 10:00 | US_ITS ---
WS: [id number] Gallbladder and right upper quadrant ultrasound, 10/05/2022 Clinical Data: elevated lfts Comparison: None. Findings: The gallbladder shows no sludge or stone. The wall measures 0.3 cm with no pericholecystic fluid. The common bile duct is 0.3 cm and there are no intrahepatic ductal abnormalities. Liver shows no cysts, masses or dilated intrahepatic ducts. Liver parenchyma shows heterogeneous echo texture. There is normal portal venous flow. Liver measures 17.29 cm. The pancreas is partly obscured by overlying bowel gas but no cyst, pseudocyst, or evidence of pancre atitis is noted. Right kidney measures 12.1 cm and no cyst, masses or hydronephrosis can be seen. The aorta and inferior vena cava show no vascular abnormalities. US/US liver [id number] Impression: Heterogeneous echotexture of the liver with mild hepatomegaly.
== END 2022-10-05 10:02 | disposition home or self-care (01) ==
PROVIDERS: PCP Family Medicine; Visit Provider Family Medicine
DX: R79.89 Other specified abnormal findings of blood chemistry (principal); R16.0 Hepatomegaly, not elsewhere classified
CPT/HCPCS: 76705

== ENCOUNTER → 2022-10-14 13:03 | Day surgery (SDC) | payer OTHER, SELFPAY ==
[2022-10-14] MEDS: ENTYVIO 1 EACH XX (15:30)
[2022-10-14 15:54] VITALS: BP 131/83; PULSE 67; RESP 18; TEMP 36.8; O2SAT 94
== END ==
PROVIDERS: PCP Family Medicine; Visit Provider Clinical Nurse Specialist Adult Health
DX: K50.90 Crohn's disease, unspecified, without complications (principal)
CPT/HCPCS: 96365; J7050

== ENCOUNTER → 2022-12-09 13:06 | Day surgery (SDC) | payer OTHER, SELFPAY ==
[2022-12-09] MEDS: ENTYVIO 1 EACH XX (14:08)
[2022-12-09 14:14] VITALS: BP 125/79; PULSE 61; RESP 18; TEMP 36.2; O2SAT 93
[2022-12-09 14:17] LABS: Basophils % 0.3 %; Eosinophils # 0.3 10^3/uL (0.0-0.8); Eosinophils % 3.4 %; Hematocrit 40.4 % (42.0-52.0); Hemoglobin 13.3 g/dL (11.7-16.6); Lymphocytes # 2.2 10^3/uL (0.8-4.8); Lymphocytes % 24.2 %; Mean Corpuscular HGB Conc 32.9 g/dL (30.0-36.0); Mean Corpuscular Hemoglobin 31.7 pg (28.0-34.0); Mean Corpuscular Volume 96.4 fl (80-94); Mean Platelet Volume 11.7 fL (7.4-10.4); Monocytes # 0.6 10^3/uL (0.2-0.9); Neutrophils # 5.72 10^3/uL (1.8-7.7); Neutrophils % 64.5 %; Nucleated Red Blood Cells % 0 %; Platelet Count 191 10^3/cmm (130-400); Red Blood Count 4.19 10^6/uL (4.1-5.3); Red Cell Distribution Width 12.8 % (12.1-15.1); White Blood Count 8.9 10^3/uL (4.0-10.0)
[2022-12-09 14:36] LABS: Alanine Aminotransferase 30 U/L (0-41); Albumin Level 4.7 g/dL (3.5-5.2); Alkaline Phosphatase 63 U/L (40-130); Anion Gap 17.2 (5-19); Aspartate Amino Transferase 25 U/L (0-40); Blood Urea Nitrogen 15 mg/dL (6-20); Calcium 9.4 mg/dL (8.5-10.5); Carbon Dioxide 23 mmol/L (22-29); Chloride 100 mmol/L (98-107); Globulin 2.6 g/dL (1.3-4.6); Glomerular Filtration Rate 98.9 mL/min (90-130); Glucose 117 mg/dL (65-115); Osmolality Calculated 284 mOsm/kg (285-295); Potassium 4.2 mmol/L (3.5-5.1); Sodium 136 mmol/L (136-145); Total Bilirubin 0.7 mg/dL (0.15-1.2); Total Protein 7.3 g/dL (6.6-8.7)
== END ==
PROVIDERS: PCP Family Medicine; Visit Provider Clinical Nurse Specialist Adult Health
DX: K50.90 Crohn's disease, unspecified, without complications (principal)
CPT/HCPCS: 80053; 85025; 96365

== ENCOUNTER → 2023-01-18 11:10 | Outpatient (BNVA) | payer OTHER, SELFPAY | PROVIDERS: PCP Family Medicine; Visit Provider Family Medicine | DX: K50.90 Crohn's disease, unspecified, without complications (principal) | CPT/HCPCS: 86480 ==

== ENCOUNTER → 2023-02-03 11:50 | Day surgery (SDC) | payer OTHER, SELFPAY ==
[2023-02-03 12:00] VITALS: BP 128/83; PULSE 63; RESP 18; TEMP 36.2; O2SAT 94
== END ==
PROVIDERS: PCP Family Medicine; Visit Provider Clinical Nurse Specialist Adult Health
DX: K50.90 Crohn's disease, unspecified, without complications (principal)
CPT/HCPCS: 96365; J7050

== ENCOUNTER → 2023-03-31 12:56 | Day surgery (SDC) | payer OTHER, SELFPAY ==
[2023-03-31 14:16] VITALS: BMI 27.0
[2023-03-31 14:55] VITALS: BP 135/83; PULSE 65; RESP 18; TEMP 36.4; O2SAT 95
[2023-03-31] MEDS: NON-FORMULARY MEDICATION 1 EACH XX (14:57)
== END ==
PROVIDERS: PCP Family Medicine; Visit Provider Clinical Nurse Specialist Adult Health
DX: K50.90 Crohn's disease, unspecified, without complications (principal); Z79.899 Other long term (current) drug therapy
CPT/HCPCS: 96365

== ENCOUNTER → 2023-05-26 10:02 | Day surgery (SDC) | payer OTHER, SELFPAY ==
[2023-05-26] MEDS: NON-FORMULARY MEDICATION 1 EACH XX (14:54)
[2023-05-26 14:56] VITALS: BP 135/86; PULSE 61; RESP 18; TEMP 36.5; O2SAT 93
[2023-05-26 15:10] LABS: Basophils # 0.1 10^3/uL (0.0-0.1); Basophils % 0.7 %; Eosinophils # 0.2 10^3/uL (0.0-0.8); Eosinophils % 2.6 %; Hematocrit 39.9 % (42.0-52.0); Hemoglobin 13.2 g/dL (11.7-16.6); Lymphocytes # 2.2 10^3/uL (0.8-4.8); Lymphocytes % 30.1 %; Mean Corpuscular HGB Conc 33.1 g/dL (30.0-36.0); Mean Corpuscular Hemoglobin 32.8 pg (28.0-34.0); Mean Platelet Volume 11.7 fL (7.4-10.4); Monocytes # 0.7 10^3/uL (0.2-0.9); Monocytes % 9.3 %; Neutrophils # 4.17 10^3/uL (1.8-7.7); Nucleated Red Blood Cells % 0 %; Platelet Count 189 10^3/cmm (130-400); Red Blood Count 4.03 10^6/uL (4.1-5.3); Red Cell Distribution Width 12.9 % (12.1-15.1); White Blood Count 7.3 10^3/uL (4.0-10.0)
[2023-05-26 15:28] LABS: Alanine Aminotransferase 51 U/L (0-41); Albumin Level 4.5 g/dL (3.5-5.2); Alkaline Phosphatase 64 U/L (40-130); Anion Gap 15.7 (5-19); Aspartate Amino Transferase 38 U/L (0-40); Blood Urea Nitrogen 11 mg/dL (6-20); Calcium 9.3 mg/dL (8.5-10.5); Carbon Dioxide 26 mmol/L (22-29); Chloride 99 mmol/L (98-107); Globulin 2.6 g/dL (1.3-4.6); Glomerular Filtration Rate 98.9 mL/min (90-130); Glucose 131 mg/dL (65-115); Osmolality Calculated 285 mOsm/kg (285-295); Potassium 3.7 mmol/L (3.5-5.1); Sodium 137 mmol/L (136-145); Total Bilirubin 0.7 mg/dL (0.15-1.2); Total Protein 7.1 g/dL (6.6-8.7)
== END ==
PROVIDERS: PCP Family Medicine; Visit Provider Clinical Nurse Specialist Adult Health
DX: K50.90 Crohn's disease, unspecified, without complications (principal); Z79.899 Other long term (current) drug therapy
CPT/HCPCS: 36415; 80053; 85025; 96365

== ENCOUNTER → 2023-07-21 13:51 | Day surgery (SDC) | payer OTHER, SELFPAY ==
[2023-07-21] MEDS: NON-FORMULARY MEDICATION 1 EACH XX (14:18)
[2023-07-21 14:21] VITALS: BP 131/78; PULSE 63; RESP 18; TEMP 36.1; O2SAT 98
== END ==
PROVIDERS: PCP Family Medicine; Visit Provider Family Medicine
DX: K50.90 Crohn's disease, unspecified, without complications (principal)
CPT/HCPCS: 96365; J7050

== ENCOUNTER 2023-09-15 10:44 | Oncology outpatient (recurring) (ONCR) | payer OTHER, SELFPAY ==
--- NOTE | 2023-09-15 11:04 | PC.NURSE ---
patient reports some diarrhea but nothing out of the normal for patient
--- NOTE | 2023-09-15 11:26 | PC.NURSE ---
patient refused benadryl and tylenol premedication
[2023-09-15] MEDS: vedolizumab 300 MG in sodium chloride 0.9% 250 ML 500 MG IV (11:34)
[2023-09-15 11:39] VITALS: BP 142/84; PULSE 61; RESP 16; TEMP 36.2; O2SAT 96
[2023-09-15 12:21] VITALS: BP 137/80; PULSE 58; O2SAT 96
== END 2023-10-08 23:59 | disposition home or self-care (01) ==
PROVIDERS: PCP Family Medicine; Visit Provider Family Medicine
DX: K50.90 Crohn's disease, unspecified, without complications (principal)
CPT/HCPCS: 96365; J3380; J7050

== ENCOUNTER → 2023-10-17 15:14 | Outpatient (BNVA) | payer OTHER, SELFPAY | PROVIDERS: PCP Family Medicine; Visit Provider Family Medicine | DX: K50.90 Crohn's disease, unspecified, without complications (principal); I10 Essential (primary) hypertension; R73.9 Hyperglycemia, unspecified; R53.83 Other fatigue | CPT/HCPCS: 80053; 83036; 84403; 84443; 85025; 86140 ==

== ENCOUNTER → 2023-11-06 13:54 | Outpatient (BNVA) | payer OTHER, SELFPAY | PROVIDERS: PCP Family Medicine; Visit Provider Podiatrist Foot & Ankle Surgery | DX: S80.11XA Contusion of right lower leg, initial encounter; S81.812A Laceration without foreign body, left lower leg, initial encounter; W22.8XXA Striking against or struck by other objects, initial encounter | CPT/HCPCS: 73590 ==

== ENCOUNTER 2023-11-10 07:45 | Oncology outpatient (recurring) (ONCR) | payer OTHER, SELFPAY ==
[2023-11-10] MEDS: acetaminophen 325 mg Tablet 650 MG PO (08:24)
[2023-11-10 08:25] VITALS: BP 102/64; PULSE 63; RESP 16; O2SAT 94
[2023-11-10 08:26] LABS: Basophils % 0.4 %; Eosinophils # 0.3 10^3/uL (0.0-0.8); Eosinophils % 5.5 %; Hematocrit 37.8 % (37-53); Lymphocytes # 1.7 10^3/uL (0.8-4.8); Mean Corpuscular HGB Conc 33.9 g/dL (30-55); Mean Corpuscular Hemoglobin 33.6 pg (27-33); Mean Corpuscular Volume 99.2 fl (82-101); Mean Platelet Volume 11.4 fL (7.4-10.4); Monocytes # 0.7 10^3/uL (0.2-0.9); Monocytes % 11.8 %; Neutrophils # 3.01 10^3/uL (1.8-7.7); Neutrophils % 52.9 %; Nucleated Red Blood Cells % 0 %; Platelet Count 180 10^3/cmm (157-399); Red Blood Count 3.81 10^6/uL (3.85-5.65); Red Cell Distribution Width 13.1 % (12.1-15.1); White Blood Count 5.68 10^3/uL (3.29-11.43)
[2023-11-10] MEDS: sodium chloride 0.9% 250 ML 75 ML IV (08:26)
[2023-11-10] MEDS: vedolizumab 300 MG in sodium chloride 0.9% 250 ML 500 MG IV (08:38)
[2023-11-10 08:45] LABS: Alanine Aminotransferase 73 U/L (0-41); Albumin Level 4.4 g/dL (3.5-5.2); Alkaline Phosphatase 68 U/L (40-130); Anion Gap 16.7 (5-19); Aspartate Amino Transferase 50 U/L (0-40); Blood Urea Nitrogen 21 mg/dL (8-23); Calcium 9.5 mg/dL (8.5-10.5); Carbon Dioxide 23 mmol/L (22-29); Chloride 100 mmol/L (98-107); Glomerular Filtration Rate 56.3 mL/min (90-130); Glucose 120 mg/dL (65-115); Osmolality Calculated 284 mOsm/kg (285-295); Potassium 4.7 mmol/L (3.5-5.1); Sodium 135 mmol/L (136-145); Total Bilirubin 0.7 mg/dL (0.15-1.2); Total Protein 7.4 g/dL (6.6-8.7)
[2023-11-10 08:46] LABS: Creatinine Clr Calc Pharmacy 64.1244
[2023-11-10 09:24] VITALS: BP 112/14; PULSE 67; RESP 16; TEMP 36.1; O2SAT 95
== END 2023-12-07 23:59 | disposition home or self-care (01) ==
LOC: ONCMED 07:45
PROVIDERS: PCP Family Medicine; Visit Provider Family Medicine
DX: K50.90 Crohn's disease, unspecified, without complications (principal)
CPT/HCPCS: 80053; 85025; 96413; J3380; J7050

== ENCOUNTER → 2023-12-06 11:19 | Outpatient (BNVA) | payer OTHER, SELFPAY | PROVIDERS: PCP Family Medicine; Visit Provider Clinical Nurse Specialist Adult Health | DX: J02.9 Acute pharyngitis, unspecified (principal); R50.9 Fever, unspecified; J06.9 Acute upper respiratory infection, unspecified | CPT/HCPCS: 87400; 87426 ==

== ENCOUNTER 2024-01-05 09:18 | Oncology outpatient (recurring) (ONCR) | payer OTHER, SELFPAY ==
[2024-01-05] MEDS: vedolizumab 300 MG in sodium chloride 0.9% 250 ML 500 MG IV (10:23)
--- NOTE | 2024-01-05 10:38 | PC.NURSE ---
patient refused premedication
[2024-01-05 10:51] VITALS: BP 132/77; PULSE 96; RESP 18; TEMP 36.4; O2SAT 95
[2024-01-05 11:29] VITALS: BP 153/78; PULSE 55; RESP 16; TEMP 36.4
== END 2024-01-07 23:59 | disposition home or self-care (01) ==
LOC: ONCMED 09:20
PROVIDERS: PCP Family Medicine; Visit Provider Family Medicine
DX: K50.90 Crohn's disease, unspecified, without complications (principal)
CPT/HCPCS: 96413; J3380; J7050

== ENCOUNTER 2024-03-11 07:34 | Oncology outpatient (recurring) (ONCR) | payer OTHER, SELFPAY ==
[2024-03-11 07:45] VITALS: BP 143/90; PULSE 73; RESP 16; TEMP 36.6; O2SAT 97
[2024-03-11 08:05] LABS: Basophils # 0.1 10^3/uL (0.0-0.1); Basophils % 0.8 %; Eosinophils # 0.3 10^3/uL (0.0-0.8); Eosinophils % 4.1 %; Hematocrit 40.1 % (37-53); Lymphocytes # 2.6 10^3/uL (0.8-4.8); Lymphocytes % 33.2 %; Mean Corpuscular HGB Conc 34.4 g/dL (30-55); Mean Corpuscular Hemoglobin 34.1 pg (27-33); Mean Platelet Volume 11.3 fL (7.4-10.4); Monocytes # 0.8 10^3/uL (0.2-0.9); Monocytes % 9.6 %; Neutrophils # 4.04 10^3/uL (1.8-7.7); Neutrophils % 51.9 %; Nucleated Red Blood Cells % 0 %; Platelet Count 191 10^3/cmm (157-399); Red Blood Count 4.05 10^6/uL (3.85-5.65); Red Cell Distribution Width 12.9 % (12.1-15.1); White Blood Count 7.78 10^3/uL (3.29-11.43)
[2024-03-11 08:23] LABS: Alanine Aminotransferase 41 U/L (0-41); Albumin Level 3.9 g/dL (3.5-5.2); Alkaline Phosphatase 61 U/L (40-130); Aspartate Amino Transferase 37 U/L (0-40); Blood Urea Nitrogen 21 mg/dL (8-23); Calcium 8.7 mg/dL (8.5-10.5); Carbon Dioxide 24 mmol/L (22-29); Chloride 103 mmol/L (98-107); Globulin 2.9 g/dL (1.3-4.6); Glomerular Filtration Rate 86.1 mL/min (90-130); Glucose 111 mg/dL (65-115); Osmolality Calculated 288 mOsm/kg (285-295); Sodium 137 mmol/L (136-145); Total Protein 6.8 g/dL (6.6-8.7)
[2024-03-11] MEDS: vedolizumab 300 MG in sodium chloride 0.9% 250 ML 500 MG IV (08:44)
[2024-03-11 09:33] VITALS: BP 146/88; PULSE 67; RESP 17; TEMP 36.3; O2SAT 98
== END 2024-04-07 23:59 | disposition home or self-care (01) ==
PROVIDERS: PCP Family Medicine; Visit Provider Family Medicine
DX: K50.90 Crohn's disease, unspecified, without complications (principal)
CPT/HCPCS: 80053; 85025; 96413; J3380; J7050

== ENCOUNTER → 2024-04-30 09:16 | Outpatient (BNVA) | payer OTHER, SELFPAY | PROVIDERS: PCP Family Medicine; Visit Provider Nurse Practitioner Family | DX: R06.02 Shortness of breath (principal) | CPT/HCPCS: 71046 ==

== ENCOUNTER 2024-05-06 14:14 | Oncology outpatient (recurring) (ONCR) | payer OTHER, SELFPAY | END 2024-05-08 23:59 | disposition home or self-care (01) | PROVIDERS: PCP Family Medicine; Visit Provider Nurse Practitioner Family | DX: Z53.9 Procedure and treatment not carried out, unspecified reason (principal) ==

== ENCOUNTER 2024-05-13 12:34 | Oncology outpatient (recurring) (ONCR) | payer OTHER, SELFPAY ==
[2024-05-13 13:03] VITALS: BP 123/84; PULSE 62; RESP 16; TEMP 36.3; O2SAT 94
[2024-05-13] MEDS: vedolizumab 300 MG in sodium chloride 0.9% 250 ML 500 MG IV (13:20)
[2024-05-13 13:59] VITALS: BP 131/80; PULSE 60; RESP 18; TEMP 36.1; O2SAT 96
== END 2024-06-08 23:55 | disposition home or self-care (01) ==
PROVIDERS: PCP Family Medicine; Visit Provider Nurse Practitioner Family
DX: K50.90 Crohn's disease, unspecified, without complications (principal); Z79.620 Long term (current) use of immunosuppressive biologic
CPT/HCPCS: 96413; J3380; J7050

== ENCOUNTER 2024-07-12 10:03 | Oncology outpatient (recurring) (ONCR) | payer OTHER, SELFPAY ==
[2024-07-12 10:24] VITALS: BP 148/86; PULSE 65; RESP 16; TEMP 36.6; O2SAT 96
[2024-07-12] MEDS: vedolizumab 300 MG in sodium chloride 0.9% 250 ML 500 MG IV (10:47)
[2024-07-12] MEDS: ondansetron 2 mg/ML SDV 2 mL 4 MG IVP (11:12)
[2024-07-12 11:26] VITALS: BP 155/101; PULSE 78; RESP 16; TEMP 36.2; O2SAT 98
== END 2024-08-08 23:59 | disposition home or self-care (01) ==
PROVIDERS: PCP Family Medicine; Visit Provider Nurse Practitioner Family
DX: Z79.620 Long term (current) use of immunosuppressive biologic (principal); K50.90 Crohn's disease, unspecified, without complications
CPT/HCPCS: 96375; 96413; J2405; J3380; J7050

== ENCOUNTER 2024-09-09 14:45 | Oncology outpatient (recurring) (ONCR) | payer OTHER, SELFPAY ==
[2024-09-09 15:32] VITALS: BP 148/88; PULSE 83; RESP 17; TEMP 36.3; O2SAT 98
[2024-09-09 15:47] LABS: Basophils # 0.1 10^3/uL (0.0-0.1); Basophils % 0.8 %; Eosinophils # 0.2 10^3/uL (0.0-0.8); Eosinophils % 3.9 %; Hematocrit 40.8 % (37-53); Lymphocytes # 2.4 10^3/uL (0.8-4.8); Mean Corpuscular HGB Conc 32.8 g/dL (30-55); Mean Corpuscular Volume 100.5 fl (82-101); Mean Platelet Volume 11.4 fL (7.4-10.4); Monocytes # 0.5 10^3/uL (0.2-0.9); Monocytes % 8.6 %; Neutrophils # 2.72 10^3/uL (1.8-7.7); Neutrophils % 46.2 %; Nucleated Red Blood Cells % 0 %; Platelet Count 215 10^3/cmm (157-399); Red Blood Count 4.06 10^6/uL (3.85-5.65); Red Cell Distribution Width 13.2 % (12.1-15.1)
[2024-09-09] MEDS: vedolizumab 300 MG in sodium chloride 0.9% 250 ML 500 MG IV (15:55)
[2024-09-09 16:03] LABS: Alanine Aminotransferase 59 U/L (0-41); Albumin Level 4.3 g/dL (3.5-5.2); Alkaline Phosphatase 65 U/L (40-130); Anion Gap 17.4 (5-19); Aspartate Amino Transferase 42 U/L (0-40); Blood Urea Nitrogen 11 mg/dL (8-23); Carbon Dioxide 25 mmol/L (22-29); Chloride 102 mmol/L (98-107); Globulin 2.8 g/dL (1.3-4.6); Glomerular Filtration Rate 86.1 mL/min (90-130); Glucose 142 mg/dL (65-115); Osmolality Calculated 292 mOsm/kg (285-295); Potassium 4.4 mmol/L (3.5-5.1); Sodium 140 mmol/L (136-145); Total Bilirubin 0.5 mg/dL (0.15-1.2); Total Protein 7.1 g/dL (6.6-8.7)
[2024-09-09 16:31] VITALS: BP 138/90; PULSE 69; TEMP 36.1; O2SAT 96
== END 2024-10-08 23:59 | disposition home or self-care (01) ==
PROVIDERS: PCP Family Medicine; Visit Provider Nurse Practitioner Family
DX: K50.90 Crohn's disease, unspecified, without complications (principal); Z79.620 Long term (current) use of immunosuppressive biologic
CPT/HCPCS: 80053; 85025; 96413; J3380; J7050

== ENCOUNTER → 2024-09-24 08:33 | Outpatient (BNVA) | payer OTHER, SELFPAY | PROVIDERS: PCP Family Medicine; Visit Provider Podiatrist Foot & Ankle Surgery | DX: M76.72 Peroneal tendinitis, left leg | CPT/HCPCS: 73630 ==

== ENCOUNTER 2024-11-08 09:53 | Oncology outpatient (recurring) (ONCR) | payer OTHER, SELFPAY ==
[2024-11-08] MEDS: vedolizumab 300 MG in sodium chloride 0.9% 250 ML 500 MG IV (10:51)
[2024-11-08 11:36] VITALS: BP 149/87; PULSE 62; RESP 17; TEMP 36.4; O2SAT 96
== END 2024-11-08 23:59 | disposition home or self-care (01) ==
LOC: ONCMED 09:53
PROVIDERS: PCP Family Medicine; Visit Provider Nurse Practitioner Family
DX: K50.90 Crohn's disease, unspecified, without complications (principal); Z79.620 Long term (current) use of immunosuppressive biologic
CPT/HCPCS: 96413; J3380; J7050

== ENCOUNTER → 2024-12-25 14:36 | Outpatient (BNVA) | payer OTHER, SELFPAY | PROVIDERS: PCP Family Medicine; Visit Provider Podiatrist Foot & Ankle Surgery | DX: M25.572 Pain in left ankle and joints of left foot (principal); M79.672 Pain in left foot; S93.402A Sprain of unspecified ligament of left ankle, initial encounter; W18.42XA Slipping, tripping and stumbling without falling due to stepping into hole or opening, initial encounter | CPT/HCPCS: 73610; 73620 ==

== ENCOUNTER 2025-01-03 10:24 | Oncology outpatient (recurring) (ONCR) | payer OTHER, SELFPAY ==
[2025-01-03 10:31] VITALS: BP 126/74; PULSE 75; RESP 17; TEMP 36.4; O2SAT 97
[2025-01-03] MEDS: vedolizumab 300 MG in sodium chloride 0.9% 250 ML 500 MG IV (10:42)
[2025-01-03 11:18] VITALS: BP 130/81; PULSE 69; RESP 17; TEMP 527.2; TEMP 981; O2SAT 93
== END 2025-01-06 23:59 | disposition home or self-care (01) ==
LOC: ONCMED 10:24
PROVIDERS: PCP Family Medicine; Visit Provider Nurse Practitioner Family
DX: K50.90 Crohn's disease, unspecified, without complications (principal); Z79.620 Long term (current) use of immunosuppressive biologic
CPT/HCPCS: 96413; J3380; J7050

== ENCOUNTER 2025-03-07 10:01 | Oncology outpatient (recurring) (ONCR) | payer OTHER, SELFPAY ==
[2025-03-07 10:19] VITALS: BP 152/84; PULSE 63; RESP 17; TEMP 36.5; O2SAT 95
[2025-03-07] MEDS: vedolizumab 300 MG in sodium chloride 0.9% 250 ML 500 MG IV (10:58)
== END 2025-03-08 23:59 | disposition home or self-care (01) ==
LOC: ONCMED 10:01
PROVIDERS: PCP Family Medicine; Visit Provider Nurse Practitioner Family
DX: K50.90 Crohn's disease, unspecified, without complications (principal); Z79.620 Long term (current) use of immunosuppressive biologic; Z79.899 Other long term (current) drug therapy
CPT/HCPCS: 96413; J3380; J7050

== ENCOUNTER → 2025-03-20 13:06 | Outpatient (BNVA) | payer OTHER, SELFPAY | PROVIDERS: PCP Family Medicine; Visit Provider Family Medicine | DX: I10 Essential (primary) hypertension (principal); R79.89 Other specified abnormal findings of blood chemistry; K50.90 Crohn's disease, unspecified, without complications | CPT/HCPCS: 80053; 85025 ==

== ENCOUNTER 2025-05-02 09:50 | Oncology outpatient (recurring) (ONCR) | payer OTHER, SELFPAY ==
[2025-05-02 10:20] VITALS: BP 123/76; PULSE 68; RESP 16; TEMP 36.6; O2SAT 96
[2025-05-02 11:11] VITALS: BP 119/71; PULSE 76; O2SAT 96
== END 2025-05-08 23:59 | disposition home or self-care (01) ==
PROVIDERS: PCP Family Medicine; Visit Provider Internal Medicine
DX: K50.90 Crohn's disease, unspecified, without complications (principal); Z79.620 Long term (current) use of immunosuppressive biologic; Z79.899 Other long term (current) drug therapy
CPT/HCPCS: 96413; J3380; J7050

== ENCOUNTER → 2025-06-11 08:39 | Outpatient (BNVA) | payer OTHER, SELFPAY | PROVIDERS: PCP Family Medicine; Visit Provider Family Medicine | DX: I10 Essential (primary) hypertension (principal); R68.89 Other general symptoms and signs; R79.89 Other specified abnormal findings of blood chemistry; K50.90 Crohn's disease, unspecified, without complications | CPT/HCPCS: 80053; 82607; 83735; 84153; 84439; 84443; 84481; 85025 ==